=== PATIENT | female | born 1935 | race Caucasian/White ===

== ENCOUNTER → 2016-04-11 16:15 | Outpatient (CLI) | payer MEDICARE, OTHER ==
[2010-01-21 12:48] VITALS: BMI 28.8
== END | disposition home or self-care (01) ==
LOC: D.MAMMO 09:15
DX: Z12.31 Encounter for screening mammogram for malignant neoplasm of breast (principal)

== ENCOUNTER → 2017-04-28 17:00 | Outpatient (CLI) | payer MEDICARE, OTHER ==
[2010-01-21 12:48] VITALS: BMI 28.8
== END | disposition home or self-care (01) ==
LOC: D.MAMMO 15:30
DX: Z12.31 Encounter for screening mammogram for malignant neoplasm of breast (principal)

== ENCOUNTER 2018-04-30 08:00 | Outpatient (CLI) | payer MEDICARE, OTHER ==
[2010-01-21 12:48] VITALS: BMI 28.8
== END 2018-04-30 09:00 | disposition home or self-care (01) ==
LOC: D.MAMMO 08:00
DX: Z12.31 Encounter for screening mammogram for malignant neoplasm of breast (principal)

== ENCOUNTER 2019-06-05 10:00 | Outpatient (CLI) | payer MEDICARE, OTHER ==
[2010-01-21 12:48] VITALS: BMI 28.8
== END 2019-06-05 11:00 | disposition home or self-care (01) ==
LOC: D.MAMMO 10:00
PROVIDERS: ATTEND Internal Medicine
DX: R92.8 Other abnormal and inconclusive findings on diagnostic imaging of breast (principal)

== ENCOUNTER 2019-12-09 09:30 | Outpatient (CLI) | payer MEDICARE, OTHER ==
[2010-01-21 12:48] VITALS: BMI 28.8
== END 2019-12-09 10:30 | disposition home or self-care (01) ==
LOC: D.MAMMO 09:30
PROVIDERS: ATTEND Internal Medicine
DX: R92.8 Other abnormal and inconclusive findings on diagnostic imaging of breast (principal)

== ENCOUNTER 2020-06-05 09:45 | Outpatient (CLI) | payer MEDICARE, OTHER ==
[2010-01-21 12:48] VITALS: BMI 28.8
== END 2020-06-05 10:15 | disposition home or self-care (01) ==
LOC: D.MAMMO 09:45
PROVIDERS: ATTEND Internal Medicine
DX: Z12.31 Encounter for screening mammogram for malignant neoplasm of breast (principal)